=== PATIENT | male | born 1970 | race Caucasian/White ===

== ENCOUNTER 2018-03-10 22:42 | Emergency (ER) | payer OTHER ==
[~2018-03-10] VITALS: Ht 190.5 cm; Wt 104.3 kg
[~2018-03-10 22:42] MED LIST: OMEPRAZOLE40 MG PO
[2018-03-10] MEDS ORDERED: ONDANSETRON HCL INJ 2 MG/ML VIAL IV STA (23:08)
[2018-03-10] MEDS ORDERED: MORPHINE SULFATE INJ 10 MG/ML IV ONE (23:15)
[2018-03-10] MEDS ORDERED: SODIUM CHLORIDE 0.9% 1000ML 1,000 ML IV SCH (23:15)
[2018-03-11 00:58] LABS: BASOPHILS % 0.4 % (0.0-1.0); EOSINOPHILS % 0.2 % (0.0-6.0); HEMATOCRIT 44.3 % (38.2-49.6); HEMOGLOBIN 14.3 g/dL (14.0-18.0); LYMPHOCYTES # (AUTO) 0.3 (1.0-3.2); LYMPHOCYTES % 3.5 % (18.0-39.1); MEAN CORPUSCULAR HEMOGLOBIN 25.8 pg (28-32); MEAN CORPUSCULAR HGB CONC 32.3 g/dL (31-35); MEAN CORPUSCULAR VOLUME 79.8 fL (81-99); MONOCYTES # (AUTO) 0.6 (0.2-0.8); NEUTROPHILS # (AUTO) 7.5 (2.1-6.9); NEUTROPHILS % 88.7 % (38.7-80.0); PLATELET COUNT 189 x10e3/uL (140-360); RED BLOOD COUNT 5.55 x10e6/uL (4.3-5.7); RED CELL DISTRIBUTION WIDTH 12.8 % (11.7-14.4)
[2018-03-11 02:49] VITALS: BP 133/76
== END 2018-03-11 02:47 | disposition home or self-care (01) ==
LOC: FSED 22:42
DX: R11.2 Nausea with vomiting, unspecified (principal); R10.9 Unspecified abdominal pain
CPT/HCPCS: 36415; 74177; 80053; 80076; 81003; 83605; 85025 ×2; 99283; J2270; J2405

== ENCOUNTER 2019-04-02 00:37 | Emergency (ER) | payer OTHER ==
[~2019-04-02] VITALS: Ht 190.5 cm; Wt 104.3 kg
[2019-04-02 01:04] LABS: BASOPHILS # (AUTO) 0.1 (0.0-0.1); BASOPHILS % 1.4 % (0.0-1.0); EOSINOPHILS # (AUTO) 0.3 (0.0-0.4); EOSINOPHILS % 4.7 % (0.0-6.0); HEMATOCRIT 44.5 % (38.2-49.6); HEMOGLOBIN 14.5 g/dL (14.0-18.0); LYMPHOCYTES # (AUTO) 2.5 (1.0-3.2); LYMPHOCYTES % 37.8 % (18.0-39.1); MEAN CORPUSCULAR HEMOGLOBIN 25.8 pg (28-32); MEAN CORPUSCULAR HGB CONC 32.6 g/dL (31-35); MEAN CORPUSCULAR VOLUME 79.3 fL (81-99); MONOCYTES # (AUTO) 0.7 (0.2-0.8); MONOCYTES % 10.8 % (4.4-11.3); NEUTROPHILS % 45.1 % (38.7-80.0); PLATELET COUNT 232 x10e3/uL (140-360); RED BLOOD COUNT 5.61 x10e6/uL (4.3-5.7); RED CELL DISTRIBUTION WIDTH 12.8 % (11.7-14.4)
[2019-04-02 01:36] LABS: ALANINE AMINOTRANSFERASE 41 IU/L (0-55); ALBUMIN/GLOBULIN RATIO 1.4 (0.8-2.0); ALKALINE PHOSPHATASE 53 IU/L (40-150); ANION GAP 11.4 mmol/L (8-16); BLOOD UREA NITROGEN 15 mg/dL (7-26); BUN/CREATININE RATIO 11 (6-25); CALCIUM 9.5 mg/dL (8.4-10.2); CARBON DIOXIDE 28 mmol/L (22-29); CHLORIDE 101 mmol/L (98-107); CREATINE KINASE 152 IU/L (30-200); CREATININE, SERUM 1.32 mg/dL (0.72-1.25); EST GLOMERULAR FILTRATION RATE 58 ML/MIN (60-); GLUCOSE 121 mg/dL (74-118); POTASSIUM 3.4 mmol/L (3.5-5.1); SODIUM 137 mmol/L (136-145)
--- NOTE | 2019-04-02 01:47 | Diagnostic Imaging Report ---
EXAMINATION: CHEST 2 VIEWS INDICATION: Chest tightness, cough, head pressure ^cough ^[id number] ^0130 ^Y COMPARISON: Chest x-ray 07/06/2010 FINDINGS: PA and lateral views TUBES and LINES: None. LUNGS: Mild pulmonary hyperinflation. Mild bronchial wall thickening is similar suggestive of chronic bronchitis. There is no evidence of pneumonia or pulmonary edema. PLEURA: No pleural effusion or pneumothorax. HEART AND MEDIASTINUM: The cardiomediastinal silhouette is unremarkable.. BONES AND SOFT TISSUES: Mild degenerative changes of the spine. No focal osseous lesions. Soft tissues are unremarkable. UPPER ABDOMEN: No free air under the diaphragm. IMPRESSION: Bronchial wall thickening suggestive of chronic bronchitis. No acute cardiopulmonary process. Signed by: Dr. Krissy Blakely MD on 04/02/2019 1:43 AM
== END 2019-04-02 02:02 | disposition home or self-care (01) ==
LOC: ER 00:37
DX: R07.89 Other chest pain (principal); R05 Cough; J42 Unspecified chronic bronchitis
CPT/HCPCS: 36415; 71046; 80053; 82550; 82553; 83880; 84484; 85025; 85379; 93005; 99283